=== PATIENT | male | born 1985 | race Caucasian/White ===

== ENCOUNTER 2017-08-13 23:02 | Emergency (ER) | payer SELFPAY ==
[~2017-08-13] VITALS: Ht 177.8 cm; Wt 69.2 kg
[2017-08-13 23:06] VITALS: Ht 177.8 cm; Wt 69.2 kg
--- NOTE | 2017-08-14 01:45 | RADRPT ---
PROCEDURE: XR Chest. CLINICAL INDICATION: Chest pain TECHNIQUE: AP Portable chest. COMPARISON: No pertinent prior examinations were submitted for comparison. FINDINGS: The cardiomediastinal silhouette is normal. The lungs are clear. The osseous structures are unrema rkable. IMPRESSION: No acute findings. RPTAT: HIKT all .Claudio Graham MD, MD Date Time Electronically viewed and signed by .Claudio Graham MD, MD on 08/14/2017 01:45 .T/
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
[2017-08-14] MEDS ORDERED: TRAM50TA2 PO (02:30)
[2017-08-14 02:35] VITALS: BP 123/77; PULSE 76; RESP 18
== END 2017-08-14 03:05 | disposition home or self-care (01) ==
LOC: E/R 23:02
DX: R06.02 Shortness of breath (principal); F17.210 Nicotine dependence, cigarettes, uncomplicated
CPT/HCPCS: 71010

== ENCOUNTER 2017-08-15 15:07 | Emergency (ER) | payer OTHER ==
[~2017-08-15] VITALS: Ht 165.1 cm; Wt 69.0 kg
[~2017-08-15 15:07] MED LIST: TRAM50TA2 PO
[2017-08-15 15:08] VITALS: Ht 165.1 cm; Wt 69.0 kg
--- NOTE | 2017-08-15 16:03 | ERD ---
ER Documentation Chief Complaint Chief Complaint WOUND ASSESSMENT WITH SUTURE REMOVAL HPI This is a 31-year-old male who presents to the emergency room for evaluation of a suture removal. This patient states that he had a laceration to the right portion of his lip which was sutured approximately 8 days ago. He states that he was told to come to the ER to have a suture removed. The patient has had no complication, no bleeding and came to the ER today for evaluation. The patient is up-to-date on tetanus at this time and has had no fevers or chills associated with this laceration. ROS All systems reviewed and are negative except as per history of present illness. Medications Home Meds Active Scripts Tramadol HCl (Tramadol HCl) 50 Mg Tablet, 50 MG PO Q4 Y for PAIN, #20 TAB Prov:ARAM DELGADOAma 08/14/17 Allergies Allergies: Coded Allergies: No Known Allergy (Unverified , 08/13/17) PMhx/Soc Hx Alcohol Use: Yes (Social) Hx Substance Use: No Hx Tobacco Use: Yes Physical Exam Vitals Vital Signs Date Time Temp Pulse Resp B/P Pulse Ox O2 Delivery O2 Flow Rate FiO2 08/15/17 15:08 98.6 91 16 130/81 99 Physical Exam Const: No acute distress Head: Atraumatic Eyes: Normal Conjunctiva ENT: 1 laceration noted at the right upper vermilion border, no bleeding or abscess formation. Normal External Ears, Nose and Mouth. Neck: Full range of motion..~ No meningismus. Resp: Clear to auscultation bilaterally Cardio: Regular rate and rhythm, no murmurs Abd: Soft, non tender, non distended. Normal bowel sounds Skin: No petechiae or rashes Back: No midline or flank tenderness Ext: No cyanosis, or edema Neur: Awake and alert Psych: Normal Mood and Affect Procedures/MDM Suture Removal by me: Sutures removed with tweezers and scissors without incident. Wound shows no evidence of infection, foreign body, neurologic injury, vascular injury, open joint or tendon laceration. Patient to follow up PRN. This 31-year-old male presents to the ER for evaluation of his suture removal. The patient had one suture in the right upper lip which is removed without difficulty. The patient is in no acute distress, tolerated the procedure well will be discharged home at this time. Smoking Cessation Therapy: Pt. was lectured for greater than 3 minutes on the health risks of continued smoking and the benefits of cessation. Departure Diagnosis: Primary Impression: Encounter for removal of sutures Additional Impressions: Tobacco abuse Tobacco abuse counseling Condition: Stable AISHWARYA ARMSTRONG DO Aug 15, 2017 16:03
== END 2017-08-15 16:36 | disposition home or self-care (01) ==
LOC: E/R 15:07
DX: Z48.02 Encounter for removal of sutures (principal); F17.210 Nicotine dependence, cigarettes, uncomplicated; Z71.6 Tobacco abuse counseling
CPT/HCPCS: 99281